=== PATIENT | male | born 1950 | race Caucasian/White ===

== ENCOUNTER → 2021-11-30 11:38 | Outpatient (BNVA) | payer MEDICARE, BC, SELFPAY | PROVIDERS: Family Provider Internal Medicine; PCP Family Medicine; Visit Provider Clinical Nurse Specialist Adult Health | DX: R25.2 Cramp and spasm (principal) | CPT/HCPCS: 80048; 83735 ==

== ENCOUNTER → 2022-01-27 14:39 | Outpatient (BNVA) | payer MEDICARE, BC, SELFPAY | PROVIDERS: Family Provider Internal Medicine; PCP Family Medicine; Visit Provider Nurse Practitioner Family | DX: N50.89 Other specified disorders of the male genital organs (principal); R32 Unspecified urinary incontinence | CPT/HCPCS: 81000; 87086 ==

== ENCOUNTER 2022-04-01 06:09 | Outpatient (CLI) | payer MEDICARE, BC, SELFPAY ==
--- NOTE | 2022-04-01 06:24 | US_ITS ---
WS: [id number] TESTICULAR ULTRASOUND HISTORY: Scrotal swelling, left COMPARISON: 01/07/2015 TECHNIQUE: Real-time and color Doppler imaging or utilized to perform a testicular ultrasound. Right testicle: 4.1 cm x 3.3 cm x 3.1 cm. Normal size and echogenicity. No mass or torsion. Color Doppler is limited throughout the testicle. There is a small amount of flow in the periphery. P eripheral vascularity is good waveform. No mass. No significant hydrocele. Right epididymis: Normal epididymis with no increased vascularity. Left testicle: 4.0 cm x 3.6 cm x 3.2 cm. No central vascularity. There is peripheral vascularity which has a normal waveform. Moderate size hydrocele with a few low-level echoes within the scrotum. Left epididymis: Normal epididymis with no increased vascularity. US/US scrotum [id number] IMPRESSION: 1. Large chronic LEFT minimally complex hydrocele. 2. No testicular mass. 3. There is limited color Doppler centrally within each testicle. Similar to t he prior examination. Due to stability not likely due to bilateral torsion.
== END 2022-04-01 06:10 | disposition home or self-care (01) ==
LOC: RAD 06:09
PROVIDERS: PCP Family Medicine; Visit Provider Nurse Practitioner Family
DX: N43.3 Hydrocele, unspecified (principal)
CPT/HCPCS: 76870

== ENCOUNTER → 2022-12-30 11:53 | Outpatient (BNVA) | payer MEDICARE, BC, SELFPAY | PROVIDERS: PCP Family Medicine; Visit Provider Clinical Nurse Specialist Adult Health | DX: L40.9 Psoriasis, unspecified (principal); G47.33 Obstructive sleep apnea (adult) (pediatric); M62.838 Other muscle spasm | CPT/HCPCS: 80053; 85025; 86480 ==